=== PATIENT | male | born 1985 | race African-American/Black ===

== ENCOUNTER 2020-02-29 14:30 | Emergency (ER) | payer OTHER, SELFPAY ==
--- NOTE | ~2020-02-29 | XR_ITS ---
EXAMINATION: XR thoracic spine 3V, XR lumbar spine 2-3V DATE: 02/29/2020 15:55 INDICATION: Back pain. TECHNIQUE: 1. One AP, lateral and lateral swimmer's views of the thoracic spine were obtained. 2. AP, lateral and coned-down lateral lumbosacral views of the lumbar spine were obtained. COMPARISON: None. FINDINGS: Thoracic spine: 7 degrees thoracic levocurvature measured between T2 and T5. Sagittal alignment is normal. Vertebral body heights are normal. Minimal to mild disc height loss at multiple levels in the mid and lower tho racic spine. Paravertebral soft tissues are unremarkable. Visualized portions of the lungs are clear. No evident pleural effusion or pneumothorax. Cardiomediastinal silhouette is normal. Lumbar spine: Alignment is normal. Mild disc height loss at L2-L3 and L4-L5. Sacrum and bilateral sacral iliac join ts are unremarkable. IMPRESSION: 1. Mild thoracic and lumbar spondylosis. Reviewed, dictated and finalized at location A. GENETIC IMPRESSION: 1. Mild thoracic and lumbar spondylosis.
[2020-02-29 15:00] VITALS: BP 134/73; PULSE 92; RESP 18; TEMP 36.6; O2SAT 99
[2020-02-29 15:19] VITALS: BP 134/73; PULSE 92; RESP 18; TEMP 36.6; O2SAT 99
[2020-02-29 16:33] LABS: Add Urine Microscopic? YES; Appearance Urine Clear (Clear); Bilirubin Urine Negative (Negative); Blood Urine Negative (Negative); Color Urine Yellow (Yellow); Glucose Urine UA Negative (Negative); Ketones Urine Negative (Negative); Leukocyte Esterase Ur Negative LEU/UL (Negative); Mucus Urine Heavy /lpf; Nitrate Urine Negative (Negative); Protein Urine 1+ mg/dL (Negative); Squamous Epithelial Cell Urine Rare /hpf (Few)
[2020-02-29 16:41] LABS: Specific Grav Ur 1.031 (1.001-1.035)
--- NOTE | 2020-02-29 16:54 | ED.GENADULT ---
HPI - General Adult General Chief complaint: Back Pain/Injury Stated complaint: extreme back pain Time Seen by Provider: 02/29/20 15:36 Source: patient Mode of arrival: ambulatory Limitations: no limitations History of Present Illness HPI narrative: Patient presents with chief complaint of pain to the left and right side of thoracic and lumbar area that has been intermittent for 2 weeks. He states he is continuously lifting, bending and moving for work and exercise but he can not recall a specific incidence of injury. He denies falls or accidents. He denies saddle paraesthesias or loss of bowel or bladder function. He has not done much of anything to alleviate his discomfort. He is requesting water to drink as he states he has not been drinking much fluids today. He denies, fever, nausea, vomiting, dysuria, pubic discharge, concern for STDs or any other symptoms. Related Data Allergies Allergy/AdvReac Type Severity Reaction Status Date / Time No Known Allergies Allergy Verified 02/29/20 16:55 Review of Systems Review of Systems: Narrative: CONSTITUTIONAL: Denies fever, chills, or sweats. EYES: Denies visual changes, redness, or discharge. ENT: Denies rhinorrhea, congestion, sore throat, or otalgia. CARDIOVASCULAR: Denies chest pain, palpitations, or edema. RESPIRATORY: Denies cough or dyspnea. GASTROINTESTINAL: Denies abdominal pain, nausea, vomiting, or diarrhea. GENITOURINARY: Denies dysuria or hematuria. SKIN: Denies rash or itching. MUSCULOSKELETAL: Reports back pain, Denies myalgia, or joint pain NEUROLOGIC: Denies headache, numbness, dizziness, or weakness. PSYCHIATRIC: Denies anxiety or depression. Exam Narrative: Exam Narrative: GENERAL: Well-appearing, well-nourished. HEAD: Normocephalic, atraumatic. EYES: PERRLA and EOMI NECK: Supple. No adenopathy or masses. No vertebral tenderness or loss of ROM. CHEST: Clear to auscultation. No respiratory distress. No wheezes rales or rhonchi HEART: Regular rate and rhythm. Normal peripheral pulses. ABDOMEN: Soft, nontender, nondistended, normal active bowel sounds. No bruises noted. BACK: No vertebral point tenderness, tenderness and spasm noted with bilateral paraspinal muscles lower thoracic and lumbar. No outward signs of trauma. ROM not inhibited. Sensation intact to lower extremities. Gait steady. EXTREMITIES: No acute changes in ROM. No edema. SKIN: Warm, dry, no rash. NEURO: No focal deficits. Alert and oriented x3. PSYCH: Normal mood and affect. Course Vital Signs Vital signs: Vital Signs Temperature 97.9 F 02/29/20 15:00 Pulse Rate 92 02/29/20 15:00 Respiratory Rate 18 02/29/20 15:00 Blood Pressure 134/73 02/29/20 15:00 Pulse Oximetry 99 02/29/20 15:00 Temperature 97.9 F 02/29/20 15:19 Pulse Rate 92 02/29/20 15:19 Respiratory Rate 18 02/29/20 15:19 Blood Pressure 134/73 02/29/20 15:19 Pulse Oximetry 99 02/29/20 15:19 Medical Decision Making MDM Narrative Medical decision making narrative: Patient not have any neurological deficits. His x-ray is negative for fractures patient will be treated for musculoskeletal strain. Patient encouraged to drink lots of fluids and to take his medications as instructed. Patient struck to follow-up with his primary care within 1 week for reevaluation and further recommendations. Patient verbalized understanding, plan denies any other questions or concerns. Vital Signs Vital Signs: Vital Signs Temperature 97.9 F 02/29/20 15:00 Pulse Rate 92 02/29/20 15:00 Respiratory Rate 18 02/29/20 15:00 Blood Pressure 134/73 02/29/20 15:00 Pulse Oximetry 99 02/29/20 15:00 Temperature 97.9 F 02/29/20 15:19 Pulse Rate 92 02/29/20 15:19 Respiratory Rate 18 02/29/20 15:19 Blood Pressure 134/73 02/29/20 15:19 Pulse Oximetry 99 02/29/20 15:19 Lab Data Labs: Lab Results 02/29/20 Range/Units 16:22 Urine Color Yellow (Yellow) Urine Appearance Evaristo
[2020-02-29] MEDS: KETOROLAC 30 MG/ML VIAL (*BKC) IM (17:09)
== END 2020-02-29 17:19 | disposition home or self-care (01) ==
PROVIDERS: Physician Assistant; Emergency Provider Emergency Medicine
DX: S39.012A Strain of muscle, fascia and tendon of lower back, initial encounter (principal); M47.816 Spondylosis without myelopathy or radiculopathy, lumbar region; M47.814 Spondylosis without myelopathy or radiculopathy, thoracic region; X50.9XXA Other and unspecified overexertion or strenuous movements or postures, initial encounter
CPT/HCPCS: 72072; 72100; 81001; 96372; 99283; J1885

== ENCOUNTER 2022-12-05 14:11 | Emergency (ER) | payer BC, SELFPAY ==
--- NOTE | ~2022-12-05 | XR_ITS ---
EXAMINATION: XR hand LT min 3V DATE: 12/05/2022 15:01 INDICATION: Left hand pain. TECHNIQUE: 3 views of left hand were obtained. COMPARISON: None. FINDINGS: There is a comminuted fracture of neck of fifth metacarpal. The main distal fracture fragme nt demonstrates 5 mm radial palmar displacement and 3 mm shortening. There is a fracture of base of f ifth metacarpal at its radial aspect. There is a fracture deformity of base of fifth proximal phalanx that is likely old. There are small foci of shrapnel around fifth proximal phalanx. Spaces are arabella l. IMPRESSION: 1. Comminuted fracture of fifth metacarpal involving the neck and base. 2. Old fracture deformity of base of fifth proximal phalanx with nearby shrapnel. Reviewed, dictated and finalized at location E. IMPRESSION: 1. Comminuted fracture of fifth metacarpal involving the neck and base. 2. Old fracture deformity of base of fifth proximal phalanx with nearby shrapne l.
[2022-12-05 14:19] VITALS: BP 153/97; PULSE 62; RESP 18; TEMP 36.8; O2SAT 97
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
[2022-12-05] MEDS: HYDROcodone/acetaminophen (*CRX) 7.5-325 MG TABLET 1 TAB PO (15:59)
== END 2022-12-05 16:25 | disposition home or self-care (01) ==
LOC: ANHED 16:00
PROVIDERS: Emergency Provider Nurse Practitioner Family
DX: S62.337A Displaced fracture of neck of fifth metacarpal bone, left hand, initial encounter for closed fracture (principal); S62.317A Displaced fracture of base of fifth metacarpal bone, left hand, initial encounter for closed fracture; Y04.0XXA Assault by unarmed brawl or fight, initial encounter
CPT/HCPCS: 29125; 73130; 99284; A9270

== ENCOUNTER 2023-02-27 23:00 | Emergency (ER) | payer BC, SELFPAY ==
--- NOTE | ~2023-02-27 | XR_ITS ---
Portable chest x-ray Comparison: None Clinical History: Cough Findings: Lungs are clear, without focal consolidation or pleural effusion. Cardiomediastinal silho uette is unremarkable. Bones and soft tissues are unremarkable. Impression: Normal chest. Reviewed, dictated and finalized at location . ETCHER Impression: Normal chest.
--- NOTE | ~2023-02-27 | CT_ITS ---
CT of the Abdomen and Pelvis: Indication: Abdominal pain Technique: 2.5 mm axial scans were obtained through the abdomen and pelvis following intravenous adm inistration of 100 cc of Omnipaque 350. Dose reduction technique was used on this scan by utilizing a utomated exposure control and iterative reconstruction technique. The dose-length product (DLP) was 4 37.18 mGy-cm. Findings: Scans through the lung bases are unremarkable. The liver, spleen, pancreas, gallbladder, adrenals and kidneys are within normal limits. No evidence of aortic aneurysm. No lymphadenopathy. No bowel obstruction or bowel wall thickening. There is no evidence to suggest acute appendicitis. Images through the pelvis were performed. Urinary bladder unremarkable. No pelvic mass seen. No ascit es. Impression: No significant abnormalities seen. Reviewed, dictated and finalized at [facility]. [employer] Impression: No significant abnormalities seen.
[2023-02-27 23:04] VITALS: BP 116/80; PULSE 76; RESP 22; TEMP 36.9; O2SAT 96
[2023-02-28 01:30] VITALS: BP 150/92; PULSE 60; RESP 18; O2SAT 95; O2SAT 96
[2023-02-28 03:12] LABS: Appearance Urine Clear (Clear); Bacteria Urine None Seen /hpf; Bilirubin Urine 1+ (Negative); Blood Urine 2+ (Negative); Color Urine Dark Yellow (Yellow); Glucose Urine UA Negative (Negative); Ketones Urine 1+ mg/dL (Negative); Leukocyte Esterase Ur Negative LEU/UL (Negative); Nitrate Urine Negative (Negative); Non Pathogenic Casts 0-2; Protein Urine 1+ mg/dL (Negative); RBC Urine 51-100 /hpf (0-2); Specific Grav Ur 1.031 (1.001-1.035); Squamous Epithelial Cell Urine None seen /hpf (Few); WBC Urine 0-5 /hpf
[2023-02-28 03:21] LABS: Add Urine Microscopic? YES
[2023-02-28] MEDS: MORPHINE SULFATE (*CRX) 4 MG/ML INJ IV PUSH (03:23)
[2023-02-28] MEDS: SODIUM CHLORIDE 0.9% IV 1,000 ML 999 ML IV CONT (03:26)
[2023-02-28] MEDS: ONDANSETRON INJ 4 MG/2 ML VIAL IV PUSH (03:26)
[2023-02-28] MEDS: PANTOPRAZOLE SODIUM IV 40 MG VIAL IV PUSH (03:26)
[2023-02-28 03:37] LABS: Basophils Percent Auto 1.1 % (0.2-1.2); Eosinophils Percent Auto 0.4 % (0-4.4); Hematocrit 40.3 % (42.0-52.0); Hemoglobin 13.6 g/dL (14.0-18.0); Immature Granulocyte Absolute 0.01 K/mm3 (0.00-0.031); Immature Granulocyte Percent A 0.4 % (0-0.5); Lymphocytes Percent Auto 41.4 % (18.3-44.2); Mean Corpuscular HGB Conc 33.7 g/dl (32-36); Mean Corpuscular Hemoglobin 26.8 pg (26-34); Mean Corpuscular Volume 79.5 fl (80-100); Mean Platelet Volume 10.6 fl (7.4-10.4); Monocytes Absolute Auto 0.3 K/mm3 (0.1-0.6); Monocytes Percent Auto 12.4 % (2.6-8.5); Neutrophils Absolute Auto 1.2 K/mm3 (1.3-6.7); Neutrophils Percent Auto 44.3 % (45.5-73.1); Platelet Count Result 312 k/mm3 (150-375); Red Blood Count 5.07 M/mm3 (4.6-6.20); Red Cell Distribution Width 14.5 % (11.5-14.5); White Blood Count 2.7 K/mm3 (4.5-10.0)
[2023-02-28 03:42] VITALS: BP 110/65; PULSE 61; O2SAT 97
[2023-02-28 03:51] LABS: Lactic Acid Reflex 0.9 mmol/L (0.7-2.0)
[2023-02-28 03:55] LABS: Alanine Aminotransferase 139 U/L (6-50); Alkaline Phosphatase 77 U/L (38-126); Anion Gap 11 mmol/L (8-16); Aspartate Amino Transferase 101 U/L (17-59); Bilirubin,Total 0.7 mg/dL (0.2-1.3); Blood Urea Nitrogen 12 mg/dL (9-20); Calcium 8.8 mg/dL (8.4-10.2); Carbon Dioxide 23 mmol/L (22-30); Chloride 101 mmol/L (98-107); Estimated CRCL calculation 82 ml/min; Estimated Glomerular Filt Rate > 60; Glucose 102 mg/dL (65-110); Lipase 356 U/L (23-300); Potassium 3.6 mmol/L (3.4-5.0); Sodium 135 mmol/L (137-145)
[2023-02-28 04:05] LABS: Influenza A QL RT-PCR Negative (Negative); Influenza B QL RT-PCR Negative (Negative); RSV RNA, RT-PCR Negative (Negative); SARS-CoV-2 RNA PCR Negative (Negative)
--- NOTE | 2023-02-28 06:36 | ED.GENADULT ---
HPI - General Adult General Chief complaint: Upper Respiratory Infection Stated complaint: abd pain Time Seen by Provider: 02/28/23 02:06 History of Present Illness HPI narrative: patient is a 37-year-old gentleman presents emerged from with chief complaint of abdominal pain. Patient reports that he is having body aches said nausea vomiting for the last 48 hours did report there was some blood tinge and some of his vomit. The patient also does report that he has drank a fair amount of alcohol in the past. Related Data Allergies Allergy/AdvReac Type Severity Reaction Status Date / Time No Known Allergies Allergy Verified 02/28/23 01:36 Review of Systems Review of Systems: A 10 system review of systems was completed on the patient and is negative except for what is stated in the HPI. Nursing and ancillary documentation was reviewed. Exam Narrative: GENERAL: Well-appearing, well-nourished, and in no acute distress. HEAD: Normocephalic, atraumatic. EYES: PERRLA and EOMI. ENT: Nares clear, no rhinorrhea or epistaxis. Mucous membranes moist. NECK: Supple. CHEST: Clear to auscultation. No respiratory distress. HEART: Regular rate and rhythm. No murmur heard. Normal peripheral pulses. ABDOMEN: Soft, Mild tenderness palpation in the epigastric region, nondistended, normal active bowel sounds. EXTREMITIES: Normal range of motion. No edema. SKIN: Warm, dry, no rash. NEURO: No focal deficits. Alert and oriented x3. PSYCH: Normal mood and affect. Course Vital Signs Vital signs: Vital Signs Temperature 36.9 C 02/27/23 23:04 Pulse Rate 76 02/27/23 23:04 Respiratory Rate 22 H 02/27/23 23:04 Blood Pressure 116/80 02/27/23 23:04 Pulse Oximetry 96 02/27/23 23:04 Oxygen Delivery Room Air 02/27/23 23:04 Temperature 36.9 C 02/27/23 23:04 Pulse Rate 61 02/28/23 03:42 Respiratory Rate 18 02/28/23 01:30 Blood Pressure 110/65 02/28/23 03:42 Pulse Oximetry 97 02/28/23 03:42 Oxygen Delivery Room Air 02/28/23 01:30 Medical Decision Making [facility] Narrative Medical decision making narrative: differential diagnosis includes viral syndrome, UTI, pancreatitis, viral syndrome, laboratory studies were obtained on the patient which did show white blood cell count 2.7 lipase was slightly elevated at 356 AST and ALT were slightly elevated as well. Bilirubin was normal at 0.7 COVID flu negative urinalysis showed no evidence UTI CT scan of the abdomen pelvis was negative Vital Signs Vital Signs: Vital Signs Temperature 36.9 C 02/27/23 23:04 Pulse Rate 76 02/27/23 23:04 Respiratory Rate 22 H 02/27/23 23:04 Blood Pressure 116/80 02/27/23 23:04 Pulse Oximetry 96 02/27/23 23:04 Oxygen Delivery Room Air 02/27/23 23:04 Temperature 36.9 C 02/27/23 23:04 Pulse Rate 61 02/28/23 03:42 Respiratory Rate 18 02/28/23 01:30 Blood Pressure 110/65 02/28/23 03:42 Pulse Oximetry 97 02/28/23 03:42 Oxygen Delivery Room Air 02/28/23 01:30 Lab Data 02/28/23 03:26 02/28/23 03:26 Labs: Lab Results 02/28/23 02/28/23 Range/Units 03:01 03:26 WBC 2.7 L (4.5-10.0) K/mm3 RBC 5.07 (4.6-6.20) M/mm3 Hgb 13.6 L (14.0-18.0) g/dL Hct 40.3 L (42.0-52.0) % MCV 79.5 L (80-100) fl MCH 26.8 (26-34) pg MCHC 33.7 (32-36) g/dl RDW 14.5 (11.5-14.5) % Plt Count 312 (150-375) k/mm3 MPV 10.6 H (7.4-10.4) fl Immature Gran % (Auto) 0.4 (0-0.5) % Neut % (Auto) 44.3 L (45.5-73.1) % Lymph % (Auto) 41.4 (18.3-44.2) % [place] % (Auto) 12.4 H (2.6-8.5) % Eos % (Auto) 0.4 (0-4.4) % Baso % (Auto) 1.1 (0.2-1.2) % Lymph # (Auto) 1.10 (0.9-3.2) K/mm3 [place] # (Auto) 0.3 (0.1-0.6) K/mm3 Eos # (Auto) 0.0 (0-0.3) K/mm3 Baso # (Auto) 0.0 (0.0-0.1) K/mm3 Abs Immat Gran (auto) 0.01 (0.00-0.031) K/mm3 Absolute Neuts (auto) 1.2 L (1.3-6.7) K/mm3 Absolute Nucleated
== END 2023-02-28 07:07 | disposition home or self-care (01) ==
PROVIDERS: Emergency Provider Emergency Medicine
DX: K29.70 Gastritis, unspecified, without bleeding (principal); Z20.822 Contact with and (suspected) exposure to COVID-19
CPT/HCPCS: 36415; 71045; 74177; 80053; 81001; 83605; 83690; 85025; 87637; 96361; 96374; 96375; 99284; C9113; J2270; J2405; J7030; Q9967